=== PATIENT | male | born 1940 | race Hispanic/Latino ===

== ENCOUNTER 2018-09-28 05:07 | Observation (INO) | payer MEDICARE ==
[2018-09-26 16:27] LABS: BASOPHILS # (AUTO) 0.1 (0.0-0.1); BASOPHILS % 0.9 % (0.0-1.0); EOSINOPHILS # (AUTO) 0.4 (0.0-0.4); EOSINOPHILS % 5.3 % (0.0-6.0); HEMATOCRIT 45.1 % (38.2-49.6); HEMOGLOBIN 14.8 g/dL (14.0-18.0); LYMPHOCYTES # (AUTO) 2.6 (1.0-3.2); LYMPHOCYTES % 37.8 % (18.0-39.1); MEAN CORPUSCULAR HGB CONC 32.8 g/dL (31-35); MEAN CORPUSCULAR VOLUME 91.3 fL (81-99); MONOCYTES # (AUTO) 0.7 (0.2-0.8); MONOCYTES % 9.6 % (4.4-11.3); NEUTROPHILS # (AUTO) 3.1 (2.1-6.9); NEUTROPHILS % 46.3 % (38.7-80.0); PLATELET COUNT 219 x10e3/uL (140-360); RED BLOOD COUNT 4.94 x10e6/uL (4.3-5.7); RED CELL DISTRIBUTION WIDTH 12.6 % (11.7-14.4)
[2018-09-26 16:35] LABS: INR 0.87; PROTHROMBIN TIME 12.6 seconds (11.9-14.5)
[2018-09-26 16:36] LABS: PARTIAL THROMBOPLASTIN TIME 31.5 seconds (23.8-35.5)
[2018-09-26 16:40] LABS: ANION GAP 12.3 mmol/L (8-16); BLOOD UREA NITROGEN 15 mg/dL (7-26); BUN/CREATININE RATIO 15 (6-25); CALCIUM 9.4 mg/dL (8.4-10.2); CARBON DIOXIDE 26 mmol/L (22-29); CHLORIDE 101 mmol/L (98-107); CREATININE, SERUM 1.03 mg/dL (0.72-1.25); EST GLOMERULAR FILTRATION RATE > 60 ML/MIN (60-); GLUCOSE 156 mg/dL (74-118); POTASSIUM 4.3 mmol/L (3.5-5.1); SODIUM 135 mmol/L (136-145)
--- NOTE | 2018-09-26 17:04 | Diagnostic Imaging Report ---
EXAMINATION: PA and lateral views of the chest. COMPARISON: None CLINICAL HISTORY: Preoperative study for cervical spine surgery DISCUSSION: Lungs are well-inflated. No focal consolidation, pleural effusion, or pneumothorax. Postsurgical changes of the mediastinum with sternotomy wires and mediastinal surgical clips. Heart size is at the upper limits of normal without pulmonary edema. No acute osseous abnormality. Multilevel degenerative disc changes of the thoracic spine. Healed fracture deformities of the anterior right seventh and eighth ribs. IMPRESSION: Postsurgical changes of the mediastinum without acute cardiopulmonary abnormality. Signed by: Dr. Ivan Lion M.D. on 09/26/2018 5:01 PM
[~2018-09-28] VITALS: Ht 177.8 cm; Wt 92.5 kg
[~2018-09-28 05:07] MED LIST: GABAPENTIN300 MG PO; GLIPIZIDE-METF1 EAC2 PO; LANTUS 3ML100 UNITS/ SC; LOSARTAN POTASS25 MG PO; SIMVASTATIN40 MG PO
--- OUTSIDE RECORDS SUMMARY | 2018-09-28 05:10 | XMS REPORT | Clinical Summary ---
Author Author [facility] Address Unknown Phone Unavailable Care Team Providers Care Para Educator Name Role Phone Saw Tolbert MD PCP Allergies No Known Allergies Medications End Date Status Medication Sig Dispensed Refills Start Date Active pioglitazone (ACTOS) 15 Take 15 mg by 0 MG tablet mouth daily. Active gabapentin (NEURONTIN) Take 300 mg 0 300 mg capsule by mouth 3 (three) times a day. Active glipiZIDE (GLUCOTROL) 5 Take 5 mg by 0 MG tablet mouth 2 (two) times a day before meals. Active metFORMIN (GLUCOPHAGE) Take 500 mg 0 500 mg tablet by mouth 2 (two) times a day with meals. Active valsartan (DIOVAN) 80 MG Take 80 mg by 0 tablet mouth daily. Active simvastatin (ZOCOR) 40 MG Take 40 mg by 0 tablet mouth nightly. Active Problems No known active problems Encounters Care Team Description Date Type Specialty Georgette Felix MD Hearing loss due to cerumen impaction, left; Sensorineural hearing loss, bilateral; Tinnitus aurium, right 12/16/2017 Office Visit Otolaryngology after 09/27/2017 Social History Date Tobacco Use Types Packs/Day Years Used Former Smoker Smokeless Tobacco: Never Used Alcohol Use Drinks/Week oz/Week Comments No Sex Assigned at Date Recorded Not on file Industry Job Start Date Occupation Not on file Not on file Not on file Travel End Travel History Travel Start No recent travel history available. 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 Blood Pressure 157/76 12/16/2017 10:58 AM DISTRICT BRANCH MANAGER Pulse 69 - Temperature - - Respiratory Rate - - Oxygen Saturation - - Inhaled Oxygen - Concentration - Weight - 12/16/2017 10:58 AM DISTRICT BRANCH MANAGER Height 180.3 cm (5' 11") - Body Mass Index - Plan of Treatment Health Maintenance Due Date Last Done Comments SHINGRIX VACCINE (1 of 2) 1989 ZOSTER VACCINE 1999 PNEUMOCOCCAL 2004 POLYSACCHARIDE VACCINE AGE 65 AND OVER PNEUMOCOCCAL-13 2004 INFLUENZA VACCINE 05/31/2018 Results Not on fileafter 09/27/2017 Insurance Payer Benefit Subscriber ID Type Phone Address Plan / Group [employer] C[employer] xxxxxxxxxxx [facility] Advance Directives Patient has advance care planning documents on file. For more information, slim quinn contact: James Villafuerte [address] [place] [address]
--- OUTSIDE RECORDS SUMMARY | 2018-09-28 05:10 | XMS REPORT ---
[facility] Address Unknown Phone Unavailable Care Team Providers Care Diamond Grinder Name Role Phone RADHA NOLAN Unavailable Unavailable Problems This patient has no known problems. Allergies, Adverse Reactions, Alerts This patient has no known allergies or adverse reactions. Medications This patient has no known medications. Results Test Description Test Time Test Comments Text Results Atomic Results Result Comments CHEST 2 VIEWS 2018-09-26 16:59:00 [place] [address] Patient Name: ANDIE IVY MR #: [id number] : 1940 Age/Sex: 78/M Req #: [id number] Adm Physician: Ordered by: RADHA NOLAN MD Report #: [id number] Location: OR Room/Bed: Procedure: [id number] DX/CHEST 2 VIEWS Exam Date: 09/26/18 Exam Time: 1641 REPORT STATUS: Signed EXAMINATION: PA and lateral views of the chest. COMPAR ARACELY: None CLINICAL HISTORY: Preoperative study for cervical spine surgery DISCUSSION: Lungs are well-inflated. No focal consolidation, pleural effusion, or pneumothorax. Postsurgical changes of the mediastinum with sternotomy wires and mediastinal surgical clips. Heart size is at the upper limits of normal without pulmonary edema. No acute osseous abnormality. Multilevel degenerative disc changes of the thoracic spine. Healed fracture deformities of the anterior right seventh and eighth ribs. IMPRESSION: Postsurgical changes of the mediastinum without acute cardiopulmonary abnormality. Signed by: Dr. Siria Saunders M.D. on 09/26/2018 5:01 PM Dictated By: SIRIA SAUNDERS MD 00 Transcribed By: LITO on 09/26/181700 COPY TO: RADHA NOLAN MD
[2018-09-28] MEDS ORDERED: CEFAZOLIN SOD 2 GM/D5W 50ML 50 ML IV ONE (05:33)
[2018-09-28] MEDS ORDERED: THROMBIN FOR SOLN 5,000 UNIT VIAL ONE (06:10)
[2018-09-28] MEDS ORDERED: BUPIVACAINE 0.5%/EPI 30 ML SDV INJ ONE (06:10)
[2018-09-28] MEDS ORDERED: GELATIN SPONGE 12-7MM ONE (06:10)
[2018-09-28] MEDS ORDERED: BACITRACIN 50,000 UNIT VIAL ONE (06:11)
[2018-09-28] MEDS ORDERED: HEPARIN SOD/SOD CHLORIDE 1,000 ML ONE (07:35)
[2018-09-28] MEDS: LACTATED RINGER'S 1,000 ML IV SCH ×2 (09:02→14:55)
[2018-09-28] MEDS ORDERED: HYDROMORPHONE 2MG/ML 2 MG/ML ML IV PRN ×2 (09:15)
[2018-09-28] MEDS ORDERED: ACETAMINOPHEN 325 MG TAB PO PRN (09:15)
[2018-09-28] MEDS ORDERED: CEPACOL SORE THROAT LOZENGES PO PRN (09:15)
[2018-09-28] MEDS ORDERED: PROMETHAZINE HCL (IM) 25 MG/ML VIAL IM PRN (09:15)
[2018-09-28] MEDS ORDERED: CARISOPRODOL 350 MG TAB PO PRN (09:15)
[2018-09-28] MEDS ORDERED: ONDANSETRON HCL INJ 2 MG/ML VIAL IV PRN (09:15)
[2018-09-28] MEDS ORDERED: DEXTROSE 50% SYRINGE 50 ML IV PRN (09:15)
[2018-09-28] MEDS ORDERED: MORPHINE SULFATE 5 MG/ML VIAL IM PRN (09:15)
[2018-09-28] MEDS ORDERED: MAGNESIUM/ALUMINUM/SIMETHICONE 30 ML UDC PO PRN (09:15)
--- OUTSIDE RECORDS SUMMARY | 2018-09-28 09:28 | XMS REPORT | Clinical Summary ---
Author Author [facility] Address Unknown Phone Unavailable Care Team Providers Care Enrober Tender Name Role Phone Saw Tolbert MD PCP [...] Taken Vital Sign Reading 12/16/2017 10:58 AM RETAIL ANALYST Blood Pressure 157/76 12/16/2017 10:58 AM RETAIL ANALYST Pulse 69 - Temperature - - Respiratory Rate - - Oxygen Saturation - - Inhaled Oxygen - Concentration - Weight - 12/16/2017 10:58 AM RETAIL ANALYST Height 180.3 cm (5' 11") - Body [...] Group [employer] xxxxxxxxxxx [facility] Advance Directives Patient has advance care planning documents on file. For more information, slim quinn contact: James Villafuerte [address] [place] [address]
[2018-09-28] MEDS ORDERED: MORPHINE SULFATE 2 MG/ML SYR ONE ×2 (09:32→11:12)
[2018-09-28] MEDS ORDERED: FENTANYL CITRATE/PF 100MCG/2 ML INJ ONE ×2 (09:49→14:22)
--- NOTE | 2018-09-28 12:14 | Operative Report ---
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 PROCEDURES 1. C4-C5 anterior cervical diskectomy, microsurgical osteophyte resection, and allograft fusion, 36513. 2. Preparation of [employer] cortical cancellous allograft, 56005. 3. C4-C5 anterior cervical plating with Synthes Zero Profile Plate, 31096. ANESTHESIA: General. INDICATIONS: The patient is a 78-year-old man who presents with C4-5 disk herniation and spondylosis with bilateral C5 radiculopathy. He was taken to the operating room for anterior cervical decompression and fusion. PROCEDURE: After the induction of general anesthesia, the patient was placed on the operating table in the supine position. The right side of the neck was prepped and draped in a sterile fashion. The fluoroscopic C-arm was positioned in cross-table lateral orientation. A transverse incision was created on the right side of the neck superimposed on the C4-C5 disk space as determined by fluoroscopy. The platysma was divided in line with the incision. A subplatysmal dissection was carried out. An avascular plane of dissection was developed medial to the sternocleidomastoid muscle and was followed medial to the carotid sheath to the anterior border the cervical spine. The deep cervical fascia was opened. The esophagus was retracted to the left. The attachments of the longus coli muscles to the anterolateral aspects of the vertebral bodies of C4 and C5 were divided. The anterior longitudinal ligament was resected. Putnam posts were inserted into C4 and C5. The Putnam distractor was used to distract the disk space. The anterior annulus of the disk was incised with a #11 blade. The contents of the C4-5 disk were thoroughly evacuated with angled curets and pituitary rongeurs. The posterior osteophytes were meticulously drilled with a 2-mm cutting bur on a high-speed drill until they were completely removed. The posterior annulus of the disk, herniated disk material, and the posterior longitudinal ligament were resected layer by layer until the dura was fully exposed and decompressed. The medial aspects of uncinate processes were resected bilaterally to further expose and decompress the origins of the corresponding nerve roots. After satisfactory decompression had been achieved, the endplates were prepared for fusion. A piece of MTF cortical cancellous allograft measuring 10 mm in height was selected and loaded onto a Synthes ZPN plate. The construct was then inserted into the C4-C5 disk space under distraction and fluoroscopic guidance and tamped in place until the anterior margin of the plate was flush with the anterior margin of the vertebral bodies. The plate was then screwed to the endplates of C4 and C5 with 2 pairs of 14-mm screws. All screws were locked. An excellent construct was obtained. The wound was copiously irrigated with Bacitracin solution. Meticulous hemostasis was secured. Retractor was removed. Platysma was closed with 3-0 Vicryl sutures. The skin was closed with 4-0 Monocryl sutures in subcuticular fashion. Steri-Strips and dressing were applied. The patient was awakened, extubated and taken to the postanesthesia care unit in stable condition. No intraoperative complications were encountered. Estimated blood loss was 10 mL. The entire procedure was performed with motor evoked potential recording, and no adverse changes were noted at any point in the operation. Job#: [id number]
[2018-09-28 13:23] VITALS: BP 174/84
[2018-09-28 13:33] VITALS: BP 174/84
[2018-09-28] MEDS: OXYCODONE/ACETAMINOPHEN 5-325 1 EACH TABLET PO PRN ×2 (13:50→21:44)
[2018-09-28] MEDS ORDERED: CEFAZOLIN SOD 1 GM/D5W 50ML 50 ML IV SCH (14:00)
[2018-09-28] MEDS ORDERED: CEFAZOLIN SOD 1 GM VIAL IV SCH (14:00)
[2018-09-28] MEDS ORDERED: NALOXONE HCL INJ 0.4 MG/ML AMP ONE (14:22)
[2018-09-28] MEDS ORDERED: SEVOFLURANE INHAL SOLN 250 ML PEN BTL ONE (14:22)
[2018-09-28] MEDS ORDERED: MIDAZOLAM HCL 2 MG/2 ML VIAL ONE (14:22)
[2018-09-28] MEDS ORDERED: LIDOCAINE HCL 2% LOCAL INJ 5 ML SDV VIAL INJ ONE (14:22)
[2018-09-28] MEDS ORDERED: ROCURONIUM BROMIDE 10 MG/ML 5ML VIAL ONE (14:22)
[2018-09-28] MEDS ORDERED: EPHEDRINE SULFATE INJ 50 MG/10 ML SYR ONE (14:22)
[2018-09-28] MEDS ORDERED: PROPOFOL IV EMULSION 10 MG/ML 20 ML VIAL ONE (14:22)
[2018-09-28] MEDS ORDERED: SUCCINYLCHOLINE 200 MG/10 ML SYR ONE (14:22)
[2018-09-28] MEDS ORDERED: ONDANSETRON HCL INJ 2 MG/ML VIAL ONE (14:22)
[2018-09-28] MEDS ORDERED: DEXAMETHASONE SOD PHOS INJ 4 MG/ML VIAL ONE (14:22)
[2018-09-28] MEDS: INSULIN LISPRO 100 UNIT/1 ML 3ML VIAL SQ SCH ×3 (14:35→21:03)
[2018-09-28] MEDS: CEFAZOLIN SOD 1 GM/D5W 50ML 50 ML IV SCH ×2 (14:55→21:44)
[2018-09-28] MEDS ORDERED: GLIPIZIDE PO SCH (17:00)
[2018-09-28] MEDS ORDERED: METFORMIN HCL PO SCH (17:00)
[2018-09-28] MEDS: GLIPIZIDE 5 MG TAB PO SCH (17:05)
[2018-09-28] MEDS: METFORMIN HCL 500 MG TAB PO SCH (17:05)
[2018-09-28] MEDS: GABAPENTIN 300 MG CAP PO SCH (17:05)
[2018-09-28 17:35] VITALS: BP 141/67
[2018-09-28] MEDS ORDERED: PNEUMOCOCCAL VACCINE POLYVALENT 23 MCG/0.5 ML VIAL IM ONE (18:30)
[2018-09-28 20:00] VITALS: BP 135/64
[2018-09-28] MEDS ORDERED: SIMVASTATIN 40 MG TAB PO SCH (21:00)
[2018-09-28] MEDS ORDERED: ZOLPIDEM TARTRATE 5 MG TAB PO PRN (21:00)
[2018-09-28 23:43] VITALS: BP 135/64
[2018-09-29] VITALS: BP 120/64
[2018-09-29] MEDS: LACTATED RINGER'S 1,000 ML IV SCH (00:49)
[2018-09-29 04:00] VITALS: BP 153/73
[2018-09-29] MEDS: CEFAZOLIN SOD 1 GM/D5W 50ML 50 ML IV SCH (05:51)
[2018-09-29] MEDS: OXYCODONE/ACETAMINOPHEN 5-325 1 EACH TABLET PO PRN (07:00)
--- NOTE | 2018-09-29 07:15 | Diagnostic Imaging Report ---
Exam: Cervical spine, 2 views History: Post surgery Comparison: None. Findings: See impression Impression: 1. Postsurgical changes related to anterior fusion and disc spacer placement at C4-C5 with intact surgical hardware and maintained alignment. Mild degenerative disc changes at C5-C6. Mild prevertebral soft tissue swelling compatible with recent surgery. Signed by: Dr. Ivan Lion M.D. on 09/29/2018 7:11 AM
[2018-09-29] MEDS: INSULIN LISPRO 100 UNIT/1 ML 3ML VIAL SQ SCH (07:30)
[2018-09-29] MEDS: GLIPIZIDE 5 MG TAB PO SCH (08:35)
[2018-09-29] MEDS: METFORMIN HCL 500 MG TAB PO SCH (08:35)
[2018-09-29] MEDS: GABAPENTIN 300 MG CAP PO SCH (08:35)
[2018-09-29] MEDS ORDERED: LOSARTAN POTASSIUM 25 MG TAB PO SCH (09:00)
[2018-09-29 09:10] VITALS: BP 127/63
== END 2018-09-29 09:55 | disposition home or self-care (01) ==
LOC: OR 05:07 → PACU V 09:04 → MED/SURG 12:33
PROVIDERS: ADMIT Neurological Surgery; ATTEND Neurological Surgery
DX: M50.021 Cervical disc disorder at C4-C5 level with myelopathy (principal); E11.9 Type 2 diabetes mellitus without complications; Z79.84 Long term (current) use of oral hypoglycemic drugs; I10 Essential (primary) hypertension; E78.00 Pure hypercholesterolemia, unspecified; Z95.1 Presence of aortocoronary bypass graft; I25.2 Old myocardial infarction; Z23 Encounter for immunization; Z01.810 Encounter for preprocedural cardiovascular examination; Z01.812 Encounter for preprocedural laboratory examination; Z01.811 Encounter for preprocedural respiratory examination
CPT/HCPCS: 20931; 22551; 22845; 36415 ×3; 71046; 72040; 80048; 82948 ×2; 85025; 85610; 85730; 86850; 86900; 88304; 90732; 93005; 96372; C1713 ×2; G0009; G0378 ×2; J0690 ×2; J1100; J2001; J2250; J2270; J2310; J2405; J2704; J7120; 77003; J2550